=== PATIENT | male | born 1955 | race Hispanic/Latino ===

== ENCOUNTER 2024-11-19 13:05 | Emergency (ER) | payer MEDICARE ==
[~2024-11-19] VITALS: Ht 177.8 cm; Wt 86.2 kg
[~2024-11-19 13:05] MED LIST: AUGMENTIN 500-1 EACH PO
[2024-11-19 13:21] VITALS: TEMP 98.1
[2024-11-19] MEDS ORDERED: KETOROLAC TROMETHAMINE 30 MG/ML VIAL IV STA (13:29)
[2024-11-19 13:58] LABS: BASOPHILS # (AUTO) 0.1 (0.0-0.1); EOSINOPHILS # (AUTO) 0.2 (0.0-0.4); EOSINOPHILS % 2.2 % (0.0-6.0); HEMATOCRIT 44.9 % (38.2-49.6); HEMOGLOBIN 15.3 g/dL (14.0-18.0); LYMPHOCYTES # (AUTO) 2.9 (1.0-3.2); LYMPHOCYTES % 41.8 % (18.0-39.1); MEAN CORPUSCULAR HEMOGLOBIN 31.3 pg (28-32); MEAN CORPUSCULAR HGB CONC 34.1 g/dL (31-35); MEAN CORPUSCULAR VOLUME 91.8 fL (81-99); MONOCYTES # (AUTO) 0.5 (0.2-0.8); MONOCYTES % 6.6 % (4.4-11.3); NEUTROPHILS # (AUTO) 3.3 (2.1-6.9); NEUTROPHILS % 48.1 % (38.7-80.0); PLATELET COUNT 313 x10e3/uL (140-360); RED BLOOD COUNT 4.89 x10e6/uL (4.3-5.7); WHITE BLOOD COUNT 6.82 x10e3/uL (4.8-10.8)
[2024-11-19 14:19] LABS: ALBUMIN 4.6 g/dL (3.5-5.0); ALBUMIN/GLOBULIN RATIO 1.4 (0.8-2.0); ANION GAP 13.1 mmol/L (8-16); BILIRUBIN,TOTAL 0.6 mg/dL (0.2-1.2); CALCIUM 9.6 mg/dL (8.4-10.2); CREATININE, SERUM 0.86 mg/dL (0.72-1.25); POTASSIUM 4.1 mmol/L (3.5-5.1); TOTAL PROTEIN 7.8 g/dL (6.5-8.1)
[2024-11-19] MEDS: DIPHENHYDRAMINE HCL INJ 50 MG/ML VIAL IV ONE (14:25)
[2024-11-19] MEDS: SODIUM CHLORIDE 0.9% 1000ML 1,000 ML IV ONE (14:25)
[2024-11-19] MEDS: METOCLOPRAMIDE HCL 10 MG/2ML VIAL IV ONE (14:25)
[2024-11-19] MEDS: KETOROLAC TROMETHAMINE 30 MG/ML VIAL IV STA (14:26)
[2024-11-19 14:30] VITALS: PULSE 64; RESP 18; O2SAT 99
== END 2024-11-19 15:51 | disposition home or self-care (01) ==
LOC: ER 13:19
DX: R51.9 Headache, unspecified (principal); M54.2 Cervicalgia; I10 Essential (primary) hypertension
CPT/HCPCS: 36415; 70450; 80053; 85025; 99284; J1200; J1885; J2765; J7030